=== PATIENT | male | born 1930 | race Caucasian/White ===

== ENCOUNTER 2019-02-02 17:42 | Inpatient (IN) ==
[2019-02-02] MEDS ORDERED: 0.9 % Sodium Chloride 1,000 ML IVC ONE ×2 (17:51→19:19)
[2019-02-02 18:42] LABS: Basophils % 0.2 %; Hematocrit 34.7 % (37.5-50.1); Hemoglobin 10.8 g/dL (12.9-16.9); Immature Granulocytes % 0.4 % (0-4); Lymphocytes # 0.4 K/mcL (0.6-4.6); Mean Corpuscular HGB Conc 31.1 g/dL (31.6-35.5); Mean Corpuscular Hemoglobin 25.3 pg (28.0-33.3); Mean Corpuscular Volume 81.3 fL (83.0-100.0); Mean Platelet Volume 9.6 fL (9.4-12.4); Monocytes # 0.8 K/mcL (0.0-1.3); Monocytes % 8.2 %; Neutrophils # 8.8 K/mcL (1.6-8.9); Platelet Count 379 K/mcL (140-400); Red Blood Count 4.27 M/mcL (4.19-5.50); Segmented Neutrophils % 87.2 %; White Blood Count 10.1 K/mcL (4.3-11.1)
[2019-02-02 18:49] LABS: INR 1.4; Prothrombin Time 15.4 Seconds (9.4-12.1)
[2019-02-02 19:06] LABS: Alanine Aminotransferase 7 Units/L (7-52); Albumin 2.5 g/dL (3.5-5.7); Albumin/Globulin Ratio 0.6 (1.1-2.2); Alkaline Phosphatase 124 Units/L (34-104); Aspartate Amino Transferase 22 Units/L (13-39); BUN/Creatinine Ratio 14 (6-26); Bilirubin,Total 0.9 mg/dL (0.3-1.0); Blood Urea Nitrogen 12 mg/dL (8-23); Calcium 8.5 mg/dL (8.6-10.3); Carbon Dioxide 26 mEq/L (23-29); Chloride 96 mEq/L (98-107); Globulin 4.5 g/dL (2.4-3.5); Glucose 186 mg/dL (70-105); Osmolality,Calculated 289 (280-300); Potassium 3.4 mEq/L (3.5-5.1); Sodium 137 mEq/L (136-145); Troponin I 0.03 ng/mL (< 0.04); eGFR For African Americans > 60 (> 60); eGFR For Non-African Americans > 60 (> 60)
[2019-02-02] MEDS ORDERED: Ondansetron 4 MG/2 ML VIAL IVP ONE (19:18)
--- NOTE | 2019-02-02 19:19 | Emergency Department Note ---
Disposition Clinical Impression: Elevated lactic acid level Rhabdomyolysis Qualifiers: Rhabdomyolysis type: non-traumatic Qualified Code(s): M62.82 - Rhabdomyolysis Ascites Qualifiers: Ascites type: other type Qualified Code(s): R18.8 - Other ascites Disposition: Still a Patient Condition: Undetermined [facility]Primary Care Provider[facility] - Forms: ED Satisfaction Letter Time of Disposition: 19:49 General Adult HPI - General Chief complaint: ED Fall Stated complaint: Weakness Time Seen by Provider: 02/02/19 17:54 Source: family (Son), EMS Mode of arrival: EMS Limitations: altered mental status Nursing Notes Reviewed: Yes Vital Signs Reviewed: Yes - History of Present Illness HPI Narrative: 88-year-old male presents emergency department via EMS after being found down on the ground by son. History is limited due to the patient's current mental status. The son states arriving at the patient's house finding him on the bathroom floor unable to get up. States the patient reports being on the ground all day. The sun last saw the patient yesterday. Reportedly at this time the patient cannot provide any additional history. He is is not recall what happened. He denies any pain at this time. The son does not know what medications or medical illnesses he has in the patient does not as well. On physical evaluation it does appear that he has ascites as he has a distended abdomen when he denies history of liver cirrhosis. The son reports she is typically confused at baseline but this is more so than usual. He believes he is in [place] but thinks the years 1985. He knows his name. Pain Scale: 0 - Related Data Home Medications Medication Instructions Recorded Confirmed Atorvastatin Calcium 80 mg PO HS 04/17/17 10/09/18 Insulin Glargine [Lantus] 50 unit SQ DAILY 04/17/17 10/09/18 Losartan [Cozaar] 12.5 mg PO DAILY 04/17/17 10/09/18 Omeprazole [PriLOSEC] 20 mg PO DAILY 03/11/18 10/09/18 Previous Rx's Medication Instructions Recorded Ferrous Sulfate 325 mg PO BID 30 Days #60 tablet. 10/09/18 Allergies Allergy/AdvReac Type Severity Reaction Status Date / Time metformin AdvReac Unknown Abdominal Verified 10/09/18 09:24 Pain tamsulosin AdvReac Unknown unknown Verified 10/09/18 09:24 Limitations: ROS unobtainable due to patients medical condition Past Medical History - Past Medical History Source: unable to obtain, old records reviewed Medical history: Reports: cancer, CVA, diabetes, hyperlipidemia, hypertension Surgical history: Reports: non-contributory Psychiatric history: Reports: no psych history - Social History Smoking Status: Former smoker Smokeless Tobacco Status: No Alcohol use: Reports: none Drug use: Reports: none Physical Exam - General Limitations: altered mental status General appearance: other - Head Head exam: atraumatic, normocephalic, normal inspection - Eye Eye exam: Present: normal appearance, EOMI. Absent: scleral icterus, nystagmus - ENT ENT exam: normal exam, normal oropharynx, mucous membranes moist - Neck Neck exam: Present: normal inspection, full ROM, trachea midline. Absent: tenderness - Chest Chest inspection: Present: normal inspection, symmetric chest wall rise. Absent: tenderness - Respiratory Respiratory exam: Present: normal lung sounds bilaterally - Cardiovascular Cardiovascular exam: Present: regular rate, normal rhythm, normal heart sounds - Abdominal Exam Abdominal exam: Present: soft, distention, ascites. Absent: tenderness, guarding, rebound, rigidity - Extremities Exam Extremities exam: Present: normal inspection, full ROM - Expanded Upper Extremity Exam Shoulder exam: Present: normal inspection, full ROM Arm exam: Present: normal inspection, full ROM Elbow exam: Present: normal inspection, full ROM, abrasion Forearm/Wrist exam: Present: normal inspection, full ROM Hand exam: Present: normal inspection, full ROM Vascular exam: Normal: capillary refill, radial pulse - Expanded Lower Extremity Exam Hip/Pelvis exam: Present: normal inspection, full ROM Upper leg exam: Present: normal inspection, full ROM Knee exam: Present: normal inspection, full ROM Lower leg exam: Present: normal inspection, full ROM Ankle exam: Present: normal inspection, full ROM Foot/toe exam: Present: normal inspection, full ROM Neurovascular/Tendon exam: Absent: motor deficit, sensory deficit, tendon deficit - Back Exam Back exam: Present: normal inspection, full ROM, other (Slight area of erythema on the sacrum). Absent: tenderness - Neurological Exam Neurological exam: Present: alert - Expanded Neurological Exam Patient oriented to: Present: person. Absent: place, time Cranial nerves: EOM function (II, III, IV, ): Normal, facial sensation (V): Normal, facial palsy (VII): Normal, tongue deviation (XII): Normal Motor strength - LUE: 5/5 Motor strength - RUE: 5/5 Motor strength - LLE: 5/5 Motor strength - RLE: 5/5 Upper motor neuron exam: tony neglect: Absent bilaterally, pronator drift: Absent bilaterally Sensory exam upper extremity: light touch: Normal Sensory exam lower extremity: light touch: Normal - Psychiatric Psychiatric exam: Present: normal affect, normal mood - Skin Skin exam: Present: warm, dry, intact, normal color, other (He has multiple areas of ecchymosis due to likely prior injuries) - Expanded Skin Exam Type of lesion: Present: abrasion (Bilateral elbow) Course Course Narrative: Patient comes reportedly found down. No additional history provided. At this time will evaluate for possible rhabdomyolysis with CK basic labs. EKG and imaging will be ordered including CT of the head and cervical spine. Patient will likely require admission pending his evaluation. If he does have intracranial etiology or hemorrhage he will likely require transfer. - Reevaluation(s) Reevaluation #1: Review of his labs has multiple abnormalities. He has elevated BNP and abnormal troponin 0.03. His lactate is critically high at 4.2. His CK is also elevated without evidence of acute kidney injury. There is concerned that he is developing rhabdomyolysis and will continue aggressive fluid hydration. Will closely monitor his urine output by placing a Miner catheter. His blood pressure otherwise remains quite stable. He is developing some nausea and it will be addressed with Zofran. CT scan images are still pending at this time. We will a transfer his care to nighttime physician Dr. Araujo pending and imaging and final disposition. Vital Signs Temperature 98.8 F 02/02/19 17:44 Pulse Rate 116 02/02/19 17:44 Respiratory Rate 17 02/02/19 17:44 Blood Pressure 141/78 02/02/19 17:44 O2 Sat by Pulse Oximetry 94 02/02/19 17:44 Temperature 98.8 F 02/02/19 17:44 Pulse Rate 118 02/02/19 19:13 Respiratory Rate 22 02/02/19 19:13 Blood Pressure 147/88 02/02/19 19:13 O2 Sat by Pulse Oximetry 93 02/02/19 19:13 Oxygen Delivery Oxygen Delivery Room Air Medical Decision Making - MDM Narrative Medical decision making narrative: Patient was discussed with my attending physician who agrees with ED management and final disposition. They independently evaluated the patient. Please refer to their attestation to this encounter for additional information. This note was generated by [employer] voice recognition software and as a result grammatical or spelling errors may occur using this program. - Medical Records Medical records reviewed: Yes I reviewed the patient's medical records. - Lab Data Lab results reviewed: Yes I reviewed the patient's lab results. Result diagrams: 02/02/19 18:31 02/02/19 18:31 Lab Results 02/02/19 02/02/19 02/02/19 Range/Units 18:31 18:31 18:31 WBC 10.1 (4.3-11.1) K/mcL RBC 4.27 (4.19-5.50) M/mcL Hgb 10.8 L (12.9-16.9) g/dL Hct 34.7 L (37.5-50.1) % MCV 81.3 L (83.0-100.0) fL MCH 25.3 L (28.0-33.3) pg MCHC 31.1 L (31.6-35.5) g/dL RDW 19.0 H (11.5-14.5) % Plt Count 379 (140-400) K/mcL MPV 9.6 (9.4-12.4) fL Immature Gran % 0.4 (0-4) % Seg Neutrophils % 87.2 % Lymphocytes % 4.0 % Monocytes % 8.2 % Eosinophils % 0.0 % Basophils % 0.2 % Neutrophils # 8.8 (1.6-8.9) K/mcL Lymphocytes # 0.4 L (0.6-4.6) K/mcL Monocytes # 0.8 (0.0-1.3) K/mcL Eosinophils # 0.0 (0.0-0.6) K/mcL Basophils # 0.0 (0.0-0.2) K/mcL PT 15.4 H (9.4-12.1) Seconds INR 1.4 Sodium 137 (136-145) mEq/L Potassium 3.4 L (3.5-5.1) mEq/L Chloride 96 L (98-107) mEq/L Carbon Dioxide 26 (23-29) mEq/L BUN 12 (8-23) mg/dL Creatinine 0.86 (0.70-1.30) mg/dL Est GFR ( Amer) > 60 (> 60) Est GFR (Non-Af Amer) > 60 (> 60) BUN/Creatinine Ratio 14 (6-26) Glucose 186 H (70-105) mg/dL Calculated Osmolality 289 (280-300) Lactic Acid (0.5-2.2) mmol/L Calcium 8.5 L (8.6-10.3) mg/dL Total Bilirubin 0.9 (0.3-1.0) mg/dL AST 22 (13-39) Units/L ALT 7 (7-52) Units/L Alkaline Phosphatase 124 H (34-104) Units/L Creatine Kinase (30-223) Units/L Troponin I 0.03 (< 0.04) ng/mL B-Natriuretic Peptide (Less than 100) pg/mL Serum Total Protein 7.0 (6.4-8.9) g/dL Albumin 2.5 L (3.5-5.7) g/dL Globulin 4.5 H (2.4-3.5) g/dL Albumin/Globulin Ratio 0.6 L (1.1-2.2) TSH 4.201 (0.340-5.600) mcIU/mL Urine Color (Yellow) Urine Clarity (Clear) Urine pH (5.0-8.0) pH Units Ur Specific [place] (1.010-1.025) Urine Protein (Neg-Trace) mg/dL Urine Glucose (UA) (Normal) mg/dL Urine Ketones (Negative) mg/dL Urine Blood (Negative) Urine Nitrite (Negative) Urine Bilirubin (Negative) Urine Urobilinogen (Normal) mg/dL Ur Leukocyte Esterase (Negative) 02/02/19 02/02/19 02/02/19 Range/Units 18:31 18:31 18:31 WBC (4.3-11.1) K/mcL RBC (4.19-5.50) M/mcL Hgb (12.9-16.9) g/dL Hct (37.5-50.1) % MCV (83.0-100.0) fL MCH (28.0-33.3) pg MCHC (31.6-35.5) g/dL RDW (11.5-14.5) % Plt Count (140-400) K/mcL MPV (9.4-12.4) fL Immature Gran % (0-4) % Seg Neutrophils % % Lymphocytes % % Monocytes % % Eosinophils % % Basophils % % Neutrophils # (1.6-8.9) K/mcL Lymphocytes # (0.6-4.6) K/mcL Monocytes # (0.0-1.3) K/mcL Eosinophils # (0.0-0.6) K/mcL Basophils # (0.0-0.2) K/mcL PT (9.4-12.1) Seconds INR Sodium (136-145) mEq/L Potassium (3.5-5.1) mEq/L Chloride (98-107) mEq/L Carbon Dioxide (23-29) mEq/L BUN (8-23) mg/dL Creatinine (0.70-1.30) mg/dL Est GFR ( Amer) (> 60) Est GFR (Non-Af Amer) (> 60) BUN/Creatinine Ratio (6-26) Glucose (70-105) mg/dL Calculated Osmolality (280-300) Lactic Acid 4.7 H* (0.5-2.2) mmol/L Calcium (8.6-10.3) mg/dL Total Bilirubin (0.3-1.0) mg/dL AST (13-39) Units/L ALT (7-52) Units/L Alkaline Phosphatase (34-104) Units/L Creatine Kinase 475 H (30-223) Units/L Troponin I (< 0.04) ng/mL B-Natriuretic Peptide 200 H (Less than 100) pg/mL Serum Total Protein (6.4-8.9) g/dL Albumin (3.5-5.7) g/dL Globulin (2.4-3.5) g/dL Albumin/Globulin Ratio (1.1-2.2) TSH (0.340-5.600) mcIU/mL Urine Color (Yellow) Urine Clarity (Clear) Urine pH (5.0-8.0) pH Units Ur Specific [place] (1.010-1.025) Urine Protein (Neg-Trace) mg/dL Urine Glucose (UA) (Normal) mg/dL Urine Ketones (Negative) mg/dL Urine Blood (Negative) Urine Nitrite (Negative) Urine Bilirubin (Negative) Urine Urobilinogen (Normal) mg/dL Ur Leukocyte Esterase (Negative) 02/02/19 Range/Units 19:17 WBC (4.3-11.1) K/mcL RBC (4.19-5.50) M/mcL Hgb (12.9-16.9) g/dL Hct (37.5-50.1) % MCV (83.0-100.0) fL MCH (28.0-33.3) pg MCHC (31.6-35.5) g/dL RDW (11.5-14.5) % Plt Count (140-400) K/mcL MPV (9.4-12.4) fL Immature Gran % (0-4) % Seg Neutrophils % % Lymphocytes % % Monocytes % % Eosinophils % % Basophils % % Neutrophils # (1.6-8.9) K/mcL Lymphocytes # (0.6-4.6) K/mcL Monocytes # (0.0-1.3) K/mcL Eosinophils # (0.0-0.6) K/mcL Basophils # (0.0-0.2) K/mcL PT (9.4-12.1) Seconds INR Sodium (136-145) mEq/L Potassium (3.5-5.1) mEq/L Chloride (98-107) mEq/L Carbon Dioxide (23-29) mEq/L BUN (8-23) mg/dL Creatinine (0.70-1.30) mg/dL Est GFR ( Amer) (> 60) Est GFR (Non-Af Amer) (> 60) BUN/Creatinine Ratio (6-26) Glucose (70-105) mg/dL Calculated Osmolality (280-300) Lactic Acid (0.5-2.2) mmol/L Calcium (8.6-10.3) mg/dL Total Bilirubin (0.3-1.0) mg/dL AST (13-39) Units/L ALT (7-52) Units/L Alkaline Phosphatase (34-104) Units/L Creatine Kinase (30-223) Units/L Troponin I (< 0.04) ng/mL B-Natriuretic Peptide (Less than 100) pg/mL Serum Total Protein (6.4-8.9) g/dL Albumin (3.5-5.7) g/dL Globulin (2.4-3.5) g/dL Albumin/Globulin Ratio (1.1-2.2) TSH (0.340-5.600) mcIU/mL Urine Color Dark Yellow (Yellow) Urine Clarity Clear (Clear) Urine pH 6.0 (5.0-8.0) pH Units Ur Specific [place] 1.021 (1.010-1.025) Urine Protein 30 H (Neg-Trace) mg/dL Urine Glucose (UA) Normal (Normal) mg/dL Urine Ketones Trace H (Negative) mg/dL Urine Blood Negative (Negative) Urine Nitrite Negative (Negative) Urine Bilirubin Small H (Negative) Urine Urobilinogen Normal (Normal) mg/dL Ur Leukocyte Esterase Negative (Negative) - Radiology Data Radiology results reviewed: Yes I reviewed the patient's radiology results. Chest X-Ray 02/02/19 17:51 IMPRESSION: Moderate right pleural effusion. D/ / Iron Coreas MD / Iron Coreas MD Interpreting Provider: Iron Coreas MD Pelvis X-Ray 02/02/19 18:25 IMPRESSION: No acute fracture. D/ / Iron Coreas MD / Iron Coreas MD Interpreting Provider: Iron Coreas MD - EKG Data EKG #1 EKG attestation: Yes I reviewed and interpreted this EKG. EKG results narrative: EKG performed at 1751 sinus tachycardia 113 beats per minute, normal axis, good R wave progression, no ST elevation or depression. There is no old EKG available for comparison at this time. No acute ischemic changes. Critical Care Time Critical Care Time: Yes Total Critical Care Time: 35 Attestation: Ankle care time 35 minutes managing patient's multiple issues. Attestation Statement - Attestation Attestation: Patient was seen with resident physician. I reviewed the history, physical, assessment and plan, and agree with the findings. I also personally evaluated this patient and had [id number] time with this patient. 88-year-old male presents emergency Department chief complaint of fall. Patient is a very poor historian and was unable to provide significant history other than sometime yesterday he fell he does not remember exactly what happened and he was found today approximately a day later. He says he feels generally weak but denies other specific complaints he has had a little bit of nausea as well as some shortness of breath no chest pain. Review of systems as above remainder reviewed and negative to the best of our ability but the patient's a poor story. Physical exam vital signs demonstrate tachycardia with a stable blood pressure. ENT shows an abrasion to the top of his head. Neck and back are nontender. Heart regular rhythm and rate. Lungs some crackles in the bases. Abdomen is soft and nontender. Extremities no signs of trauma. Pelvis is stable. Neurologically patient is somewhat confused does follow commands no focal deficits. Skin abrasion as noted. Psych unable to evaluate. ED course. A thorough workup was done. Patient was found to have several metabolic derangements including rhabdo with elevated CK and a markedly elevated lactate level. He was hydrated. X-ray revealed pleural effusion. Workup was incomplete at the time of shift change. Patient was signed out to Dr. Araujo for final disposition with the plan to admit or transfer the patient once the remainder the information his back. Hemodynamically he remained stable while in the emergency department. I agree with the resident physician assessment and plan.
[2019-02-02 19:20] LABS: Thyroid Stimulating Hormone 4.201 mcIU/mL (0.340-5.600)
[2019-02-02 19:38] LABS: Bilirubin,Urine Small (Negative); Blood,Urine Negative (Negative); Clarity,Urine Clear (Clear); Color,Urine Dark Yellow (Yellow); Glucose,Urine (UA) Normal (Normal); Ketones,Urine Trace mg/dL (Negative); Leukocyte Esterase,Urine Negative (Negative); Nitrite,Urine Negative (Negative); Protein,Urine 30 mg/dL (Neg-Trace); Specific Gravity,Urine 1.021 (1.010-1.025); Urobilinogen,Urine Normal (Normal)
--- NOTE | 2019-02-02 19:38 | Emergency Department Note ---
Disposition Clinical Impression: Elevated lactic acid level Rhabdomyolysis Qualifiers: Rhabdomyolysis type: non-traumatic Qualified Code(s): M62.82 - Rhabdomyolysis Ascites Qualifiers: Ascites type: other type Qualified Code(s): R18.8 - Other ascites Disposition: Admitted As Inpatient Condition: Good [facility]errals: [facility] [Primary Care Provider] - Forms: ED Satisfaction Letter Time of Disposition: 20:25 General Adult HPI - General Chief complaint: ED Fall Stated complaint: Weakness Time Seen by Provider: 02/02/19 17:54 Source: EMS Limitations: altered mental status - History of Present Illness Pain Scale: 0 - Related Data Home Medications Medication Instructions Recorded Confirmed Atorvastatin Calcium 80 mg PO HS 04/17/17 10/09/18 Insulin Glargine [Lantus] 50 unit SQ DAILY 04/17/17 10/09/18 Losartan [Cozaar] 12.5 mg PO DAILY 04/17/17 10/09/18 Omeprazole [PriLOSEC] 20 mg PO DAILY 03/11/18 10/09/18 Previous Rx's Medication Instructions Recorded Ferrous Sulfate 325 mg PO BID 30 Days #60 tablet. 10/09/18 Allergies Allergy/AdvReac Type Severity Reaction Status Date / Time metformin AdvReac Unknown Abdominal Verified 10/09/18 09:24 Pain tamsulosin AdvReac Unknown unknown Verified 10/09/18 09:24 Past Medical History - Past Medical History Medical history: Reports: cancer, CVA, diabetes, hyperlipidemia, hypertension Surgical history: Reports: non-contributory Psychiatric history: Reports: no psych history - Social History Smoking Status: Former smoker Smokeless Tobacco Status: No Alcohol use: Reports: none Drug use: Reports: none Physical Exam - General Limitations: altered mental status General appearance: other Course Course Narrative: accepted sign out from Dr. Walker and Dr. Resident [place]. Plan is to followup on CT scans and admit to medicine for rhabdo and elevated lactic acid - Reevaluation(s) Reevaluation #1: updated patinet and family on results and they are agreeable to admission to the hospital today. Time: 20:25 - Consultations Consultation #1: dscussed case with Dr. pollock and he accepts patient to his service. Time: 20:25 Vital Signs Temperature 98.8 F 02/02/19 17:44 Pulse Rate 116 02/02/19 17:44 Respiratory Rate 17 02/02/19 17:44 Blood Pressure 141/78 02/02/19 17:44 O2 Sat by Pulse Oximetry 94 02/02/19 17:44 Temperature 98.8 F 02/02/19 17:44 Pulse Rate 118 02/02/19 19:13 Respiratory Rate 22 02/02/19 19:13 Blood Pressure 147/88 02/02/19 19:13 O2 Sat by Pulse Oximetry 93 02/02/19 19:13 Oxygen Delivery Oxygen Delivery Room Air Medical Decision Making - Lab Data Result diagrams: 02/02/19 18:31 02/02/19 18:31 Lab Results 02/02/19 02/02/19 02/02/19 Range/Units 18:31 18:31 18:31 WBC 10.1 (4.3-11.1) K/mcL RBC 4.27 (4.19-5.50) M/mcL Hgb 10.8 L (12.9-16.9) g/dL Hct 34.7 L (37.5-50.1) % MCV 81.3 L (83.0-100.0) fL MCH 25.3 L (28.0-33.3) pg MCHC 31.1 L (31.6-35.5) g/dL RDW 19.0 H (11.5-14.5) % Plt Count 379 (140-400) K/mcL MPV 9.6 (9.4-12.4) fL Immature Gran % 0.4 (0-4) % Seg Neutrophils % 87.2 % Lymphocytes % 4.0 % Monocytes % 8.2 % Eosinophils % 0.0 % Basophils % 0.2 % Neutrophils # 8.8 (1.6-8.9) K/mcL Lymphocytes # 0.4 L (0.6-4.6) K/mcL Monocytes # 0.8 (0.0-1.3) K/mcL Eosinophils # 0.0 (0.0-0.6) K/mcL Basophils # 0.0 (0.0-0.2) K/mcL PT 15.4 H (9.4-12.1) Seconds INR 1.4 Sodium 137 (136-145) mEq/L Potassium 3.4 L (3.5-5.1) mEq/L Chloride 96 L (98-107) mEq/L Carbon Dioxide 26 (23-29) mEq/L BUN 12 (8-23) mg/dL Creatinine 0.86 (0.70-1.30) mg/dL Est GFR ( Amer) > 60 (> 60) Est GFR (Non-Af Amer) > 60 (> 60) BUN/Creatinine Ratio 14 (6-26) Glucose 186 H (70-105) mg/dL Calculated Osmolality 289 (280-300) Lactic Acid (0.5-2.2) mmol/L Calcium 8.5 L (8.6-10.3) mg/dL Total Bilirubin 0.9 (0.3-1.0) mg/dL AST 22 (13-39) Units/L ALT 7 (7-52) Units/L Alkaline Phosphatase 124 H (34-104) Units/L Creatine Kinase (30-223) Units/L Troponin I 0.03 (< 0.04) ng/mL B-Natriuretic Peptide (Less than 100) pg/mL Serum Total Protein 7.0 (6.4-8.9) g/dL Albumin 2.5 L (3.5-5.7) g/dL Globulin 4.5 H (2.4-3.5) g/dL Albumin/Globulin Ratio 0.6 L (1.1-2.2) TSH 4.201 (0.340-5.600) mcIU/mL Urine Color (Yellow) Urine Clarity (Clear) Urine pH (5.0-8.0) pH Units Ur Specific [place] (1.010-1.025) Urine Protein (Neg-Trace) mg/dL Urine Glucose (UA) (Normal) mg/dL Urine Ketones (Negative) mg/dL Urine Blood (Negative) Urine Nitrite (Negative) Urine Bilirubin (Negative) Urine Urobilinogen (Normal) mg/dL Ur Leukocyte Esterase (Negative) Urine Microscopic RBC (0-3) per hpf Urine Microscopic WBC (0-3) per hpf Ur Squamous Epith Cells (None-Few) per lpf Urine Bacteria (None-Few) per hpf Hyaline Casts (None-Few) per lpf Ur Culture Indicated? (NO) 02/02/19 02/02/19 02/02/19 Range/Units 18:31 18:31 18:31 WBC (4.3-11.1) K/mcL RBC (4.19-5.50) M/mcL Hgb (12.9-16.9) g/dL Hct (37.5-50.1) % MCV (83.0-100.0) fL MCH (28.0-33.3) pg MCHC (31.6-35.5) g/dL RDW (11.5-14.5) % Plt Count (140-400) K/mcL MPV (9.4-12.4) fL Immature Gran % (0-4) % Seg Neutrophils % % Lymphocytes % % Monocytes % % Eosinophils % % Basophils % % Neutrophils # (1.6-8.9) K/mcL Lymphocytes # (0.6-4.6) K/mcL Monocytes # (0.0-1.3) K/mcL Eosinophils # (0.0-0.6) K/mcL Basophils # (0.0-0.2) K/mcL PT (9.4-12.1) Seconds INR Sodium (136-145) mEq/L Potassium (3.5-5.1) mEq/L Chloride (98-107) mEq/L Carbon Dioxide (23-29) mEq/L BUN (8-23) mg/dL Creatinine (0.70-1.30) mg/dL Est GFR ( Amer) (> 60) Est GFR (Non-Af Amer) (> 60) BUN/Creatinine Ratio (6-26) Glucose (70-105) mg/dL Calculated Osmolality (280-300) Lactic Acid 4.7 H* (0.5-2.2) mmol/L Calcium (8.6-10.3) mg/dL Total Bilirubin (0.3-1.0) mg/dL AST (13-39) Units/L ALT (7-52) Units/L Alkaline Phosphatase (34-104) Units/L Creatine Kinase 475 H (30-223) Units/L Troponin I (< 0.04) ng/mL B-Natriuretic Peptide 200 H (Less than 100) pg/mL Serum Total Protein (6.4-8.9) g/dL Albumin (3.5-5.7) g/dL Globulin (2.4-3.5) g/dL Albumin/Globulin Ratio (1.1-2.2) TSH (0.340-5.600) mcIU/mL Urine Color (Yellow) Urine Clarity (Clear) Urine pH (5.0-8.0) pH Units Ur Specific [place] (1.010-1.025) Urine Protein (Neg-Trace) mg/dL Urine Glucose (UA) (Normal) mg/dL Urine Ketones (Negative) mg/dL Urine Blood (Negative) Urine Nitrite (Negative) Urine Bilirubin (Negative) Urine Urobilinogen (Normal) mg/dL Ur Leukocyte Esterase (Negative) Urine Microscopic RBC (0-3) per hpf Urine Microscopic WBC (0-3) per hpf Ur Squamous Epith Cells (None-Few) per lpf Urine Bacteria (None-Few) per hpf Hyaline Casts (None-Few) per lpf Ur Culture Indicated? (NO) 02/02/19 Range/Units 19:17 WBC (4.3-11.1) K/mcL RBC (4.19-5.50) M/mcL Hgb (12.9-16.9) g/dL Hct (37.5-50.1) % MCV (83.0-100.0) fL MCH (28.0-33.3) pg MCHC (31.6-35.5) g/dL RDW (11.5-14.5) % Plt Count (140-400) K/mcL MPV (9.4-12.4) fL Immature Gran % (0-4) % Seg Neutrophils % % Lymphocytes % % Monocytes % % Eosinophils % % Basophils % % Neutrophils # (1.6-8.9) K/mcL Lymphocytes # (0.6-4.6) K/mcL Monocytes # (0.0-1.3) K/mcL Eosinophils # (0.0-0.6) K/mcL Basophils # (0.0-0.2) K/mcL PT (9.4-12.1) Seconds INR Sodium (136-145) mEq/L Potassium (3.5-5.1) mEq/L Chloride (98-107) mEq/L Carbon Dioxide (23-29) mEq/L BUN (8-23) mg/dL Creatinine (0.70-1.30) mg/dL Est GFR ( Amer) (> 60) Est GFR (Non-Af Amer) (> 60) BUN/Creatinine Ratio (6-26) Glucose (70-105) mg/dL Calculated Osmolality (280-300) Lactic Acid (0.5-2.2) mmol/L Calcium (8.6-10.3) mg/dL Total Bilirubin (0.3-1.0) mg/dL AST (13-39) Units/L ALT (7-52) Units/L Alkaline Phosphatase (34-104) Units/L Creatine Kinase (30-223) Units/L Troponin I (< 0.04) ng/mL B-Natriuretic Peptide (Less than 100) pg/mL Serum Total Protein (6.4-8.9) g/dL Albumin (3.5-5.7) g/dL Globulin (2.4-3.5) g/dL Albumin/Globulin Ratio (1.1-2.2) TSH (0.340-5.600) mcIU/mL Urine Color Dark Yellow (Yellow) Urine Clarity Clear (Clear) Urine pH 6.0 (5.0-8.0) pH Units Ur Specific [place] 1.021 (1.010-1.025) Urine Protein 30 H (Neg-Trace) mg/dL Urine Glucose (UA) Normal (Normal) mg/dL Urine Ketones Trace H (Negative) mg/dL Urine Blood Negative (Negative) Urine Nitrite Negative (Negative) Urine Bilirubin Small H (Negative) Urine Urobilinogen Normal (Normal) mg/dL Ur Leukocyte Esterase Negative (Negative) Urine Microscopic RBC 0-3 (0-3) per hpf Urine Microscopic WBC 5-15 H (0-3) per hpf Ur Squamous Epith Cells Many H (None-Few) per lpf Urine Bacteria None Seen (None-Few) per hpf Hyaline Casts Moderate H (None-Few) per lpf Ur Culture Indicated? YES A (NO)
[2019-02-02 19:40] LABS: Bacteria,Urine None Seen per hpf (None-Few); Hyaline Casts,Urine Moderate per lpf (None-Few); Squamous Epithelial Cell,Urine Many per lpf (None-Few)
[2019-02-02 19:53] LABS: RBC,Urine 0-3 per hpf (0-3)
[2019-02-02] MEDS ORDERED: Piperacillin/Tazobactam 3.375 GM in 0.9 % Sodium Chloride Mini Bag 100 ML IVPB ONE (20:11)
[2019-02-02] MEDS: 0.9 % Sodium Chloride 1,000 ML IVC SCH (20:50)
[2019-02-02] MEDS ORDERED: Ondansetron 4 MG/2 ML VIAL IVP PRN (21:53)
[2019-02-02] MEDS ORDERED: Naloxone 0.4 MG/ML INJ IVP PRN (21:53)
--- NOTE | 2019-02-02 22:03 | Internal Med History&Physical ---
Date of Encounter: 02/02/19 Time of Encounter: 21:00 Internal Medicine - H&P: HPI Chief complaint: Weakness, rhabdomyolysis Admitted From: Emergency Dept History of present illness: Mr. Page is a 88 year old male Patient presented to the emergency room after being found on the floor of his bathroom by his son. Patient does not remember the episode, and the son did not find the patient until later. All the patient remembers is that he woke up in the morning and went to the bathroom and he must of blacked out. He has had falls at home before, but he has never lost consciousness. His son went to see him in the afternoon found him on the floor in a pool of blood from a wound sustained during the fall. He called ambulance to take him to the emergency room. Patient usually lives alone, but his family lives in the house next door. Patient was confused when he was found. In the emergency room patient's initial vital signs were within normal limits aside from elevated heart rate of 116. CBC: Notable for white count of 10.1 and a hemoglobin of 10.8 and platelets 379 BMP: Notable for potassium of 3.4 and a glucose of 186. Lactic acid 4.7 INR 1.4 Alkaline phosphatase mildly elevated at 124 Calcium 8.2 Creatinine kinase 475 BNP 200 Albumin 2.5. Urinalysis not indicative of infection Head CT no acute intracranial abnormality Pelvis x-ray negative for fracture Cervical spine CT no acute abnormality Chest x-ray moderate right pleural effusion Chest, Abdomen and pelvis CT: Large right and [id number] left pleural eff usion, large ascites, cirrhosis EKG: Sinus tach, rate 113 no acute ischemic changes Emergency room patient received a total of 2 L of IV fluids, and was started on 150cc maintenance fluids.he was given a milligram Zofran and a dose of Zosyn. He was admitted to the hospital for further management. Upon my evaluation, patient is resting comfortably in the hospital bed in no acute distress. He denies chest pain, abdominal pain, nausea, vomiting, diarrhea and constipation. He has no shortness of breath. He is oriented to self, place, his birthday and the year. He does not remember falling. His son is at bedside, and does not know much of the patient's medical history. The patient also does not know very much of his medical history. During my examination, patient mentioned that he has a diagnosis of tuberculosis. [facility] contacted the [facility], and they confirmed that the patient does not have tuberculosis. They agreed to fax over some of patient's medical record as our records are incomplete. Patient has never been admitted to this hospital before. I discussed with the patient his CODE STATUS, and he wishes to be DNR/DNI. According to documentation obtained from the [facility], patient has a history of esophageal varices with GI bleed, anemia, diabetes, hypertension and cirrhosis. Past Med Surg Social Fam HX - Past Medical History Medical history: cancer, CVA, diabetes, hyperlipidemia, hypertension Additional medical history: colon CA Psychiatric history: no psych history - Past Surgical History Surgical History: non-contributory - Social History Smoking Status: Former smoker Smokeless Tobacco Status: No Alcohol use: none Drug use: none - Family History Mother History Unknown: Yes Father History Unknown: Yes Internal Medicine - H&P: Meds Atorvastatin Calcium 80 mg PO HS 04/17/17 [History] Insulin Glargine [Lantus] 50 unit SQ DAILY 04/17/17 [History] Losartan [Cozaar] 12.5 mg PO DAILY 04/17/17 [History] Omeprazole [PriLOSEC] 20 mg PO DAILY 03/11/18 [History] Ferrous Sulfate 325 mg PO BID 30 Days #60 tablet. 10/09/18 [Rx] Allergy/AdvReac Type Severity Reaction Status Date / Time metformin AdvReac Unknown Abdominal Verified 10/09/18 09:24 Pain tamsulosin AdvReac Unknown unknown Verified 10/09/18 09:24 All Systems PM: A 10-system review of systems was performed and is negative for pertinent findings except as documented above in the HPI. - Constitutional Vitals: Temp Pulse Resp BP Pulse Ox 98.2 F 109 14 136/74 95 02/02/19 21:36 02/02/19 21:36 02/02/19 21:36 02/02/19 21:36 02/02/19 21:58 General appearance: Present: cooperative, A&O X 2, pleasant, no acute distress Exam: Oriented to name, place, date of , and knew the year. Did not remember the episode that brought him here - Head Head exam: Present: normal inspection - Eye Eye exam: Present: EOMI, normal appearance - Neck Neck exam general surgery: Present: full ROM - Respiratory Respiratory exam: Present: rales. Absent: decreased breath sounds, CTAB, respiratory distress, wheezes - Cardiovascular Cardiovascular exam: Present: RRR. Absent: diastolic murmur, systolic murmur - GI/Abdominal GI/Abdominal exam: Present: distended, normal bowel sounds, soft. Absent: tenderness - Extremities Exam Extremities exam: Present: warm, radial pulses palpable and symmetrical. Absent: calf tenderness, pedal edema, tenderness - Neurological Exam Neurological exam: Present: no focal deficits, strengths equal and symetr throughout. Absent: motor sensory deficit, facial droop, speech deficit - Skin Skin exam: Present: normal color. Absent: dry, warm Internal Med - H&P Results - Labs CBC & Chem 7: 02/02/19 18:31 02/02/19 18:31 Labs: Short CBC 02/02/19 Range/Units 18:31 WBC 10.1 (4.3-11.1) K/mcL Hgb 10.8 L (12.9-16.9) g/dL Hct 34.7 L (37.5-50.1) % Plt Count 379 (140-400) K/mcL Neutrophils # 8.8 (1.6-8.9) K/mcL BMP 02/02/19 18:31 Sodium 137 Potassium 3.4 L Chloride 96 L Carbon Dioxide 26 BUN 12 Creatinine 0.86 Glucose 186 H Calcium 8.5 L Cardiac Enzymes 02/02/19 Range/Units 18:31 Troponin I 0.03 (< 0.04) ng/mL Liver Function 02/02/19 Range/Units 18:31 Total Bilirubin 0.9 (0.3-1.0) mg/dL AST 22 (13-39) Units/L ALT 7 (7-52) Units/L Alkaline Phosphatase 124 H (34-104) Units/L Albumin 2.5 L (3.5-5.7) g/dL Urine 02/02/19 Range/Units 19:17 Urine Color Dark Yellow (Yellow) Urine Clarity Clear (Clear) Urine pH 6.0 (5.0-8.0) pH Units Ur Specific [place] 1.021 (1.010-1.025) Urine Protein 30 H (Neg-Trace) mg/dL Urine Glucose (UA) Normal (Normal) mg/dL - Impressions ITS Impressions Abdomen/Pelvis CT 02/02/19 00:00 IMPRESSION: 1. Large right and small to moderate left pleural effusions with associated atelectasis. 2. Large ascites. 3. Findings of cirrhosis. 4. Thickened ascending colon wall likely edema related to the cirrhosis and ascites. D/ / Iron Coreas MD / Iron Coreas MD Interpreting Provider: Iron Coreas MD Chest CT 02/02/19 00:00 IMPRESSION: 1. Large right and small to moderate left pleural effusions with associated atelectasis. 2. Large ascites. 3. Findings of cirrhosis. 4. Thickened ascending colon wall likely edema related to the cirrhosis and ascites. D/ / Iron Coreas MD / Iron Coreas MD Interpreting Provider: Iron Coreas MD Chest X-Ray 02/02/19 17:51 IMPRESSION: Moderate right pleural effusion. D/ / Iron Coreas MD / Iron Coreas MD Interpreting Provider: Iron Coreas MD Head CT 02/02/19 17:51 IMPRESSION: No acute intracranial abnormality. D/ / Fabricio Reinoso MD / Fabricio Reinoso MD Interpreting Provider: Fabricio Reinoso MD Cervical Spine CT 02/02/19 18:25 IMPRESSION: 1. No acute cervical spine abnormality 2. Bilateral pleural effusions right greater than left. D/ / Fabricio Reinoso MD / Farbicio Reinoso MD Interpreting Provider: Fabricio Reinoso MD Pelvis X-Ray 02/02/19 18:25 IMPRESSION: No acute fracture. D/ / Iron Coreas MD / Iron Coreas MD Interpreting Provider: Iron Coreas MD - Assessment and Plan (1) Rhabdomyolysis Current Visit: Yes Status: Acute Assessment and plan: Elevated CK level of 475. Patient received 2 L of IV fluids in the ER. Continue IV fluid hydration Repeat CK level in the morning Monitor renal function Qualifiers: Rhabdomyolysis type: non-traumatic Qualified Code(s): M62.82 - Rhabdomyolysis (2) Falls Current Visit: Yes Status: Acute Assessment and plan: Patient does not recall the episode that brought him to the emergency room. He is unsure how long he was on the ground. He has had multiple falls at home previously is never lost consciousness. Patient does not eat the food that he is given by his family. He states that he just has no appetite and does not want to eat. PT OT consult in the morning Fall precautions Nutrition consult Qualifiers: Encounter type: initial encounter Qualified Code(s): W19.XXXA - Unspecified fall, initial encounter (3) Elevated lactic acid level Current Visit: Yes Status: Acute Assessment and plan: Lactic acid level was 4.7 in the emergency room. Patient received 2 L of IV fluids. Repeat lactic acid pending. Likely secondary to rhabdomyolysis. No indication for antibiotics, no obvious infection. Continue IV fluid hydration Monitor respiratory function (4) Ascites Current Visit: Yes Status: Acute Assessment and plan: Patient's abdomen distended, imaging reveals ascites. He does have a history of cirrhosis. Unclear if patient has required paracentesis in the past. Continue to monitor Obtain medication list Consider arranging paracentesis Qualifiers: Ascites type: other type Qualified Code(s): R18.8 - Other ascites (5) Elevated troponin Current Visit: Yes Status: Acute Assessment and plan: 0.03 in the ER. No chest pain, EKG non-ischemic Cardiac monitoring Continue to trend troponin (6) Mesenteric mass Current Visit: No Status: Acute Assessment and plan: Last seen by [place] [facility] in September of this year. Management per oncology (7) DVT prophylaxis Current Visit: Yes Status: Acute Assessment and plan: SCDs secondary to history of GI bleed - Time Spent With Patient Total time spent is greater than 50% in coordination of care (as documented) at patient's floor/unit and/or counseling patient: Greater than 35 minutes
[2019-02-02] MEDS ORDERED: *HR* Dextrose 50 % in Water (Syg) 50 ML SYRINGE IVP PRN (22:32)
[2019-02-02] MEDS ORDERED: D5% in Water 1,000 ML IVC PRN (22:32)
[2019-02-02] MEDS ORDERED: Dextrose Gel 15 GM/37.5 ML TUBE PO PRN ×2 (22:32)
[2019-02-03 01:49] LABS: Hemoglobin 10.7 g/dL (12.9-16.9); Mean Corpuscular HGB Conc 30.6 g/dL (31.6-35.5); Mean Corpuscular Hemoglobin 25.6 pg (28.0-33.3); Mean Corpuscular Volume 83.7 fL (83.0-100.0); Mean Platelet Volume 9.7 fL (9.4-12.4); Platelet Count 337 K/mcL (140-400); Red Blood Count 4.18 M/mcL (4.19-5.50); Red Cell Distribution Width 18.8 % (11.5-14.5); White Blood Count 8.7 K/mcL (4.3-11.1)
[2019-02-03 02:02] LABS: BUN/Creatinine Ratio 15 (6-26); Blood Urea Nitrogen 12 mg/dL (8-23); Calcium 8.1 mg/dL (8.6-10.3); Carbon Dioxide 28 mEq/L (23-29); Chloride 100 mEq/L (98-107); Glucose 175 mg/dL (70-105); Osmolality,Calculated 290 (280-300); Potassium 3.4 mEq/L (3.5-5.1); Sodium 138 mEq/L (136-145); eGFR For African Americans > 60 (> 60); eGFR For Non-African Americans > 60 (> 60)
[2019-02-03] MEDS: 0.9 % Sodium Chloride 1,000 ML IVC SCH ×2 (02:51→10:41)
[2019-02-03] MEDS ORDERED: 0.9 % Sodium Chloride 1,000 ML IVC ONE (05:40)
[2019-02-03] MEDS: Insulin LISPRO 300 UNITS/3 ML VIAL SQ SCH ×4 (08:44→20:38)
--- NOTE | 2019-02-03 11:48 | IR Procedure Note ---
Date of procedure: 02/03/19 Consent Obtained: Written consent Timeout: Correct patient and procedure verified, Correct site verified, Time out performed, Skin prep completed Local anesthetic: Lidocaine 1% Was there an press assistant and feeder present: No Results/Findings: Ascites, draining Estimated blood loss (cc): 1 Complications: None; Tolerated procedure well Indications: Ascites Procedure Performed: Paracentesis Site/Technique: LLQ, accessed by Dr. Grayson. Results/Findings (any specimens removed): Draining well, straw colored ascites Post Procedure Treatment Plan: Monitoring in pts room Specimen: collected
--- NOTE | 2019-02-03 13:04 | Internal Med Progress Note ---
Hospitalist Progress Note - Encounter Date of Encounter: 02/03/19 Time of Encounter: 13:04 - Subjective Interval History: Patient is seen and examined at the bedside, son at the bedside. He is hard of hearing, slightly confused and a poor historian Son at the bedside reports patient lives alone but he lives next door. Patient has been having recurrent falls and was admitted for elevated CK and recurrent falls. Incidental finding of massive ascites now status post paracentesis with 7.28 L of straw-colored fluid removed. The patient does have a known history of cirrhosis. His son at the bedside also reports poor oral intake, generalized weakness. work force advisor/dietitian has seen in review. - Exam Vitals: Temp Pulse Resp BP Pulse Ox 97.4 F L 91 16 106/62 89 02/03/19 12:45 02/03/19 12:45 02/03/19 12:45 02/03/19 12:45 02/03/19 12:45 Exam: Gen: Laying flat in bed, hard of hearing but not in distress. HEENT: dry oral mucosa, anicteric Chest: CTAB, no added sounds Heart: S1, S2 only, no added sounds, systolic murmur Abdomen: Flat, clean wound dressing at para site, no palpably enlarged organs Extremities: Trace ankle edema bilaterally Neuro: Aleert, awake, oriented to place and person, moved all extremities equally. Psych: appropriate mood and affect - Assessment and Plan (1) Mesenteric mass Current Visit: Yes Status: Chronic Assessment and Plan: Biopsy proven low grade follicular lympoma Last seen by [facility] in September of this year. Management per oncology (2) Rhabdomyolysis Current Visit: Yes Status: Acute Assessment and Plan: See elevated CK Patient's renal function is WNL (3) Elevated lactic acid level Current Visit: Yes Status: Resolved Assessment and Plan: Lactic acid level was 4.7 in the emergency room. Patient received 2 L of IV fluids. Repeat lactic acid is 1.4, continue to monitor (4) Ascites Current Visit: Yes Status: Acute Assessment and Plan: Patient's abdomen distended, imaging reveals ascites. He does have a history of cirrhosis and follicular lymphoma s/p paracentensis by IR with removal of 7.2L of straw colored fluid-did not send for pathology Will give 25g of albumin for large volume paracentesis Continue to monitor Not on diuretics, consider starting diuretics after IVF hydration for elevated CK has been discontinued (5) DVT prophylaxis Current Visit: Yes Status: Acute Assessment and Plan: SCDs secondary to history of GI bleed (6) Falls Current Visit: Yes Status: Acute Assessment and Plan: Patient does not recall the episode that brought him to the emergency room. He is unsure how long he was on the ground. He has had multiple falls at home previously is never lost consciousness. Patient does not eat the food that he is given by his family. He states that he just has no appetite and does not want to eat. PT OT consult pending Fall precautions Nutrition consult noted-continue ensure (7) Elevated troponin Current Visit: Yes Status: Resolved Assessment and Plan: 0.03 in the ER. No chest pain, EKG non-ischemic Cardiac monitoring - Time Spent with Patient Total time spent is greater than 50% in coordination of care (as documented) at patient's floor/unit and/or counseling patient: Plan of Care Discussed with: family Internal Medicine: Result - Labs CBC & Chem 7: 02/03/19 01:20 02/03/19 01:20 Labs: Short CBC 02/02/19 02/03/19 Range/Units 18:31 01:20 WBC 10.1 8.7 (4.3-11.1) K/mcL Hgb 10.8 L 10.7 L (12.9-16.9) g/dL Hct 34.7 L 35.0 L (37.5-50.1) % Plt Count 379 337 (140-400) K/mcL Neutrophils # 8.8 (1.6-8.9) K/mcL BMP 02/02/19 02/03/19 18:31 01:20 Sodium 137 138 Potassium 3.4 L 3.4 L Chloride 96 L 100 Carbon Dioxide 26 28 BUN 12 12 Creatinine 0.86 0.80 Glucose 186 H 175 H Calcium 8.5 L 8.1 L Cardiac Enzymes 02/02/19 02/03/19 02/03/19 Range/Units 18:31 01:20 07:18 Troponin I 0.03 0.04 H* 0.03 (< 0.04) ng/mL Liver Function 02/02/19 Range/Units 18:31 Total Bilirubin 0.9 (0.3-1.0) mg/dL AST 22 (13-39) Units/L ALT 7 (7-52) Units/L Alkaline Phosphatase 124 H (34-104) Units/L Albumin 2.5 L (3.5-5.7) g/dL Urine 02/02/19 Range/Units 19:17 Urine Color Dark Yellow (Yellow) Urine Clarity Clear (Clear) Urine pH 6.0 (5.0-8.0) pH Units Ur Specific [place] 1.021 (1.010-1.025) Urine Protein 30 H (Neg-Trace) mg/dL Urine Glucose (UA) Normal (Normal) mg/dL - ABG Interpretation ABG results: PT/INR, D-dimer PT 15.4 Seconds (9.4-12.1) H 02/02/19 18:31 - Impressions Impressions Abdomen/Pelvis CT 02/02/19 00:00 IMPRESSION: 1. Large right and small to moderate left pleural effusions with associated atelectasis. 2. Large ascites. 3. Findings of cirrhosis. 4. Thickened ascending colon wall likely edema related to the cirrhosis and ascites. D/ / Iron Coreas MD / Iron Coreas MD Interpreting Provider: Iron Coreas MD Chest CT 02/02/19 00:00 IMPRESSION: 1. Large right and small to moderate left pleural effusions with associated atelectasis. 2. Large ascites. 3. Findings of cirrhosis. 4. Thickened ascending colon wall likely edema related to the cirrhosis and ascites. D/ / Iron Coreas MD / Iron Coreas MD Interpreting Provider: Iron Coreas MD Chest X-Ray 02/02/19 17:51 IMPRESSION: Moderate right pleural effusion. D/ / Iron Coreas MD / Iron Coreas MD Interpreting Provider: Iron Coreas MD Head CT 02/02/19 17:51 IMPRESSION: No acute intracranial abnormality. D/ / Fabricio Reinoso MD / Fabricio Reinoso MD Interpreting Provider: Fabricio Reinoso MD Cervical Spine CT 02/02/19 18:25 IMPRESSION: 1. No acute cervical spine abnormality 2. Bilateral pleural effusions right greater than left. D/ / Fabricio Reinoso MD / Fabricio Reinoso MD Interpreting Provider: Fabricio Reinoso MD Pelvis X-Ray 02/02/19 18:25 IMPRESSION: No acute fracture. D/ / Iron Coreas MD / Iron Coreas MD Interpreting Provider: Iron Coreas MD Paracentesis Ultrasound 02/03/19 08:45 IMPRESSION: Successful ultrasound guided paracentesis. D/ / Austin Burnett MD / Austin Burnett MD Interpreting Provider: Austin Burnett MD Consult Discharge Plan - Plan [facility]errals: [facility] [Primary Care Provider] - (2) Rhabdomyolysis Qualifiers: Rhabdomyolysis type: non-traumatic Qualified Code(s): M62.82 - Rhabdomyolysis (4) Ascites Qualifiers: Ascites type: other type Qualified Code(s): R18.8 - Other ascites (6) Falls Qualifiers: Encounter type: initial encounter Qualified Code(s): W19.XXXA - Unspecified fall, initial encounter
[2019-02-03] MEDS ORDERED: Albumin 25% 25gram/100mL 25 GM/100 ML IV.SOLN IVPB ONE (14:00)
--- NOTE | 2019-02-03 17:47 | Electrocardiograph Report ---
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
[2019-02-04] MEDS: 0.9 % Sodium Chloride 1,000 ML IVC SCH ×2 (01:12→08:27)
[2019-02-04] MEDS: Insulin LISPRO 300 UNITS/3 ML VIAL SQ SCH ×4 (08:31→20:54)
--- NOTE | 2019-02-04 09:37 | Internal Med Progress Note ---
Hospitalist Progress Note - Encounter Date of Encounter: 02/04/19 Time of Encounter: 09:35 - Subjective Interval History: Pt seen and examined in the room. He seems alert and oriented. He has no abdominal pain, N/V, or diarrhea. Overnight he has no fever, chills, or night sweats. - Exam Vitals: Temp Pulse Resp BP Pulse Ox 97.8 F 102 16 106/65 90 02/04/19 07:58 02/04/19 07:58 02/04/19 07:58 02/04/19 07:58 02/04/19 07:58 Exam: Gen: Laying flat in bed, hard of hearing but not in distress. HEENT: dry oral mucosa, anicteric Chest: CTAB, no added sounds Heart: S1, S2 only, no added sounds, systolic murmur Abdomen: Flat, clean wound dressing at para site, no palpably enlarged organs Extremities: Trace ankle edema bilaterally Neuro: Aleert, awake, oriented to place and person, moved all extremities equally. Psych: appropriate mood and affect - Assessment and Plan (1) Ascites Current Visit: Yes Status: Acute Assessment and Plan: 02/03 Patient's abdomen distended, imaging reveals ascites. He does have a history of cirrhosis and follicular lymphoma s/p paracentensis by IR with removal of 7.2L of straw colored fluid-did not send for pathology. Will give 25g of albumin for large volume paracentesis. Continue to monitor. Not on diuretics, consider starting diuretics after IVF hydration for elevated CK has been discontinued. 02/04 Low level of CK and renal function normal. Due to ascites, will dc IVF. 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 Will start Aldactone. PT/OT recommended ECF. F/u with oncology and PCP upon dc. (2) Mesenteric mass Current Visit: Yes Status: Chronic Assessment and Plan: Biopsy proven low grade follicular lympoma Last seen by [facility] in September of this year. Management per oncology (3) Rhabdomyolysis Current Visit: Yes Status: Acute Assessment and Plan: low level of CK Patient's renal function is WNL (4) Elevated lactic acid level Current Visit: Yes Status: Resolved Assessment and Plan: Lactic acid level was 4.7 in the emergency room. Patient received 2 L of IV fluids. Repeat lactic acid is 1.4, continue to monitor. (5) Falls Current Visit: Yes Status: Acute (6) Elevated troponin Current Visit: Yes Status: Resolved Assessment and Plan: Trop, 0.03, 0.04, and 0.03, No EKG changes, no chest pain. Cardiac monitoring. (7) DVT prophylaxis Current Visit: Yes Status: Acute Assessment and Plan: SCDs secondary to history of GI bleed - Time Spent with Patient Total time spent is greater than 50% in coordination of care (as documented) at patient's floor/unit and/or counseling patient: Greater than 35 minutes Plan of Care Discussed with: patient Internal Medicine: Result - Labs CBC & Chem 7: 02/03/19 01:20 02/03/19 01:20 - ABG Interpretation ABG results: PT/INR, D-dimer PT 15.4 Seconds (9.4-12.1) H 02/02/19 18:31 - Impressions Impressions Paracentesis Ultrasound 02/03/19 08:45 IMPRESSION: Successful ultrasound guided paracentesis. D/ / Austin Burnett MD / Austin Burnett MD Interpreting Provider: Austin Burnett MD Consult Discharge Plan - Plan [facility]errals: [facility] [Primary Care Provider] - (1) Ascites Qualifiers: Ascites type: other type Qualified Code(s): R18.8 - Other ascites (3) Rhabdomyolysis Qualifiers: Rhabdomyolysis type: non-traumatic Qualified Code(s): M62.82 - Rhabdomyolysis (5) Falls Qualifiers: Encounter type: initial encounter Qualified Code(s): W19.XXXA - Unspecified fall, initial encounter
[2019-02-05 02:50] LABS: Basophils % 0.5 %; Eosinophils # 0.1 K/mcL (0.0-0.6); Eosinophils % 1.5 %; Hematocrit 31.3 % (37.5-50.1); Hemoglobin 9.5 g/dL (12.9-16.9); Immature Granulocytes % 0.4 % (0-4); Lymphocytes # 0.9 K/mcL (0.6-4.6); Lymphocytes % 12.6 %; Mean Corpuscular HGB Conc 30.4 g/dL (31.6-35.5); Mean Corpuscular Hemoglobin 25.4 pg (28.0-33.3); Mean Corpuscular Volume 83.7 fL (83.0-100.0); Mean Platelet Volume 9.5 fL (9.4-12.4); Monocytes # 0.7 K/mcL (0.0-1.3); Monocytes % 9.4 %; Neutrophils # 5.6 K/mcL (1.6-8.9); Platelet Count 321 K/mcL (140-400); Red Blood Count 3.74 M/mcL (4.19-5.50); Red Cell Distribution Width 18.6 % (11.5-14.5); Segmented Neutrophils % 75.6 %; White Blood Count 7.5 K/mcL (4.3-11.1)
[2019-02-05 03:08] LABS: BUN/Creatinine Ratio 18 (6-26); Blood Urea Nitrogen 14 mg/dL (8-23); Calcium 7.9 mg/dL (8.6-10.3); Carbon Dioxide 26 mEq/L (23-29); Chloride 103 mEq/L (98-107); Glucose 164 mg/dL (70-105); Osmolality,Calculated 282 (280-300); Potassium 4.1 mEq/L (3.5-5.1); Sodium 134 mEq/L (136-145); eGFR For African Americans > 60 (> 60); eGFR For Non-African Americans > 60 (> 60)
[2019-02-05] MEDS: Insulin LISPRO 300 UNITS/3 ML VIAL SQ SCH ×4 (08:22→20:06)
--- NOTE | 2019-02-05 11:40 | Discharge Summary ---
- NOTES TO OUTPATIENT PROVIDER Notes to Outpatient Provider: Presented after falls PT/OT recommending ECF swing bed. Did have ascites with removal of 7.2 L of fluid initiated on Aldactone and lasix monitor lab work as outpatient Orders not resulted at time of discharge: Pending orders 02/05/19 11:27 CK [Creatine Kinase] Routine Date of Encounter: 02/07/19 Time of Encounter: 12:25 - Discharge Diagnosis (1) Mesenteric mass Priority: Secondary Status: Chronic (2) Rhabdomyolysis Priority: Secondary Status: Acute Qualifiers: Rhabdomyolysis type: non-traumatic Qualified Code(s): M62.82 - Rhabdomyolysis (3) Elevated lactic acid level Priority: Primary Status: Resolved (4) Ascites Priority: Secondary Status: Acute Qualifiers: Ascites type: other type Qualified Code(s): R18.8 - Other ascites (5) Falls Priority: Secondary Status: Acute Qualifiers: Encounter type: initial encounter Qualified Code(s): W19.XXXA - Unspecified fall, initial encounter (6) Elevated troponin Priority: Secondary Status: Resolved Hospital course: Mr. Page is a 88 year old male [place] history of esophageal varices GI bleed anemia diabetes hypertension cirrhosis. Patient presented to [facility] ED after being found the floor by his son. Patient did not recall the episode and he was on the floor for unknown amount time. On presentation he was found to have CK of 475 lactate was 4.[address] with no acute intracranial abnor mality urinalysis with no infection cervical C-spine with no acute abnormalities pelvis negative for fracture chest x-ray did show moderate right pleural effusion. Given IV fluid and CK did improve Chest abdomen and pelvis CT large right and small to moderate left pleural effusion large ascites . He underwent paracentesis on 02/03/19 and had approximately 7.28 L of fluid removed. Postprocedure he did have some orthostatic hypotension with blood pressures dropping down into the 70s standing. He was given albumin and blood pressure improved. Patient was initiated on low-dose diuretics. Nutritional services were consulted for dietary supplements. He was also seen by PT and OT recommending inpatient rehabilitation. Currently patient is hemodynamically stable at this time and he is ready for discharge. - Time Spent with Patient Total time spent providing and/or coordinating discharge services: - Discharge Medications Prescriptions: New Spironolactone [Aldactone] 12.5 mg PO DAILY tablet Furosemide [Lasix] 20 mg PO DAILY tablet Continued Insulin Glargine [Lantus] 50 unit SQ DAILY Omeprazole [PriLOSEC] 20 mg PO DAILY Empagliflozin [Jardiance] 25 mg PO DAILY No Action Ferrous Sulfate 325 mg PO BID 30 Days #60 tablet. FLUoxetine HCl [Fluoxetine HCl] 10 mg PO DAILY Propranolol [Inderal] 20 mg PO DAILY Rosuvastatin [Crestor] 40 mg PO HS Home Medications: Insulin Glargine [Lantus] 50 unit SQ DAILY 04/17/17 [History] Omeprazole [PriLOSEC] 20 mg PO DAILY 03/11/18 [History] Ferrous Sulfate 325 mg PO BID 30 Days #60 tablet. 10/09/18 [Rx] Empagliflozin [Jardiance] 25 mg PO DAILY 02/04/19 [History] FLUoxetine HCl [Fluoxetine HCl] 10 mg PO DAILY 02/04/19 [History] Propranolol [Inderal] 20 mg PO DAILY 02/04/19 [History] Rosuvastatin [Crestor] 40 mg PO HS 02/04/19 [History] Furosemide [Lasix] 20 mg PO DAILY tablet 02/07/19 [Rx] Spironolactone [Aldactone] 12.5 mg PO DAILY tablet 02/07/19 [Rx] Allergies/Adverse Reactions: Allergy/AdvReac Type Severity Reaction Status Date / Time metformin AdvReac Unknown Abdominal Verified 10/09/18 09:24 Pain tamsulosin AdvReac Unknown unknown Verified 10/09/18 09:24 Date of admission: 02/02/19 22:02 Primary care physician: PCP [place] Consults: 02/02/19 21:55 Consult to Occupational Therapy [CONS] Routine Comment: Evaluate, develop and implement POC Reason for Consult: Weakness, falls at home Does patient have active BEDREST order?: No Is patient medically & hemodynamically stable?: Yes Patient assessed for mobility or mobilized this visit?: No Consult to Physical Therapy [CONS] Routine Comment: Evaluate, develop and implement POC Reason for Consult: Weakness, falls at home Does patient have active BEDREST order?: No Is patient medically & hemodynamically stable?: Yes Patient assessed for mobility or mobilized this visit?: No 02/02/19 21:56 Consult to Home Health Rn [CONS] Routine Reason for SW Consult: Weakness, lives at home. Poor communicator, does not involve family with medical needs/problems 02/02/19 21:57 Consult to Home Health Rn [CONS] Routine Reason for SW Consult: lives home alone, recent fall. Discharge planning 02/02/19 22:37 Consult to Nutrition [CONS] Routine Comment: Consulting Provider: NUTRITION Reason for Dietary Consult: PO Supplementation Discharging clinician: Genesis Rodriguez Anticipated date of discharge: 02/07/19 - Constitutional Vitals: Temp Pulse Resp BP Pulse Ox 97.9 F 98 16 103/56 94 02/05/19 07:44 02/05/19 07:44 02/05/19 07:44 02/05/19 07:44 02/05/19 07:44 General appearance: Present: cooperative, A&O X 2, pleasant, no acute distress Exam: Gen: Laying flat in bed, hard of hearing but not in distress. HEENT: dry oral mucosa, anicteric Chest: CTAB, no added sounds Heart: S1, S2 only, no added sounds, systolic murmur Abdomen: Distended soft, no palpably enlarged organs Extremities: Trace ankle edema bilaterally Neuro: Aleert, awake, oriented to place and person, moved all extremities equally. Psych: appropriate mood and affect - Patient Status Disposition: Transfer SNF Condition: Good - Discharge Instructions [facility]: [facility] Care Provider[facility] - 02/14/19 10:30 am - Diet and Activity Activity: increase activity as tolerated Diet: advance to your usual diet
[2019-02-05 11:45] LABS: Creatine Kinase 64 Units/L (30-223)
--- NOTE | 2019-02-05 13:20 | Internal Med Progress Note ---
Hospitalist Progress Note - Encounter Date of Encounter: 02/05/19 Time of Encounter: 11:00 - Subjective Interval History: Patient was seen and examined at bedside. Patient is extremely hard of hearing- patient did have recent paracentesis and had a large amount of fluid removed. We will obtain orthostatic vital signs advised patient he may not be discharged if blood pressure continues to be low. Patient verbalized understanding - Exam Vitals: Temp Pulse Resp BP Pulse Ox 98.2 F 98 16 105/59 92 02/05/19 11:28 02/05/19 11:58 02/05/19 11:28 02/05/19 11:58 02/05/19 11:28 Exam: Gen: Laying flat in bed, hard of hearing but not in distress. HEENT: dry oral mucosa, anicteric Chest: CTAB, no added sounds Heart: S1, S2 only, no added sounds, systolic murmur Abdomen: Distended soft, no palpably enlarged organs Extremities: Trace ankle edema bilaterally Neuro: Aleert, awake, oriented to place and person, moved all extremities equally. Psych: appropriate mood and affect - Assessment and Plan (1) Mesenteric mass Current Visit: Yes Status: Chronic Assessment and Plan: Biopsy proven low grade follicular lympoma Last seen by [facility] in September of this year. Management per [id number] as outpatient (2) Rhabdomyolysis Current Visit: Yes Status: Acute Assessment and Plan: low level of CK-currently 64-resolved Patient's renal function is WNL (3) Elevated lactic acid level Current Visit: Yes Status: Resolved Assessment and Plan: Lactic acid level was 4.7 in the emergency room. Patient received 2 L of IV fluids. Repeat lactic acid is 1.4 (4) Ascites Current Visit: Yes Status: Acute Assessment and Plan: 02/03 Patient's abdomen distended, imaging reveals ascites. He does have a history of cirrhosis and follicular lymphoma s/p paracentensis by IR with removal of 7.2L of straw colored fluid-did not send for pathology. Will give 25g of albumin for large volume paracentesis. Continue to monitor. Not on diuretics, consider starting diuretics after IVF hydration for elevated CK has been discontinued. 02/04 Low level of CK and renal function normal. Due to ascites, will dc IVF. 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 Will start Aldactone. PT/OT recommended ECF. F/u with oncology and PCP upon dc. 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 We will initiate on Aldactone however at this time since blood pressure is low PT/OT recommending ECF swing bed Follow-up with oncology as outpatient Follow-up with [facility] [place] (5) DVT prophylaxis Current Visit: Yes Status: Acute Assessment and Plan: SCDs secondary to history of GI bleed (6) Falls Current Visit: Yes Status: Acute Assessment and Plan: Patient does not recall the episode that brought him to the emergency room. He is unsure how long he was on the ground. He has had multiple falls at home previously is never lost consciousness. Patient does not eat the food that he is given by his family. He states that he just has no appetite and does not want to eat. PT OT recommending ECF swing bed Fall precautions Nutrition consult noted-continue ensure Currently experiencing orthostatic hypotension (7) Elevated troponin Current Visit: Yes Status: Resolved Assessment and Plan: Trop, 0.03, 0.04, and 0.03, No EKG changes, no chest pain. Cardiac monitoring. (8) Orthostatic hypotension Current Visit: Yes Status: Acute Assessment and Plan: Noted systolic pressure was low checked orthostatics systolic dropped down to 70s we will hold blood pressure medication for now-most likely secondary to large volume removal from paracentesis we will monitor - Time Spent with Patient Total time spent is greater than 50% in coordination of care (as documented) at patient's floor/unit and/or counseling patient: Internal Medicine: Result - Labs CBC & Chem 7: 02/05/19 02:31 02/05/19 02:31 Labs: Short CBC 02/05/19 Range/Units 02:31 WBC 7.5 (4.3-11.1) K/mcL Hgb 9.5 L (12.9-16.9) g/dL Hct 31.3 L (37.5-50.1) % Plt Count 321 (140-400) K/mcL Neutrophils # 5.6 (1.6-8.9) K/mcL BMP 02/05/19 02:31 Sodium 134 L Potassium 4.1 Chloride 103 Carbon Dioxide 26 BUN 14 Creatinine 0.78 Glucose 164 H Calcium 7.9 L - ABG Interpretation ABG results: PT/INR, D-dimer PT 15.4 Seconds (9.4-12.1) H 02/02/19 18:31 Consult Discharge Plan - Plan [facility]errals: [facility] [Primary Care Provider] - (2) Rhabdomyolysis Qualifiers: Rhabdomyolysis type: non-traumatic Qualified Code(s): M62.82 - Rhabdomyolysis (4) Ascites Qualifiers: Ascites type: other type Qualified Code(s): R18.8 - Other ascites (6) Falls Qualifiers: Encounter type: initial encounter Qualified Code(s): W19.XXXA - Unspecified fall, initial encounter
[2019-02-06 02:26] LABS: BUN/Creatinine Ratio 18 (6-26); Blood Urea Nitrogen 14 mg/dL (8-23); Calcium 8.1 mg/dL (8.6-10.3); Carbon Dioxide 27 mEq/L (23-29); Chloride 101 mEq/L (98-107); Glucose 148 mg/dL (70-105); Osmolality,Calculated 279 (280-300); Potassium 4.2 mEq/L (3.5-5.1); Sodium 133 mEq/L (136-145); eGFR For African Americans > 60 (> 60); eGFR For Non-African Americans > 60 (> 60)
[2019-02-06] MEDS: Insulin LISPRO 300 UNITS/3 ML VIAL SQ SCH ×4 (07:42→20:53)
[2019-02-06] MEDS: Spironolactone 25 MG TABLET PO SCH (07:43)
--- NOTE | 2019-02-06 14:54 | Internal Med Progress Note ---
Hospitalist Progress Note - Encounter Date of Encounter: 02/06/19 Time of Encounter: 11:00 - Subjective Interval History: Patient was seen and examined at bedside patient is extremely hard of hearing - discussed to plan with the patient and son who is at bedside- Patient did paracentesis- and had 7238ml of fluid removed-since this procedure patient has been experiencing hypotension-orthostatic hypotension-we will check albumin- may consider midorine discussed son and father who are at bedside- verbalized understanding - Exam Vitals: Temp Pulse Resp BP Pulse Ox 97.7 F 95 16 96/56 91 02/06/19 12:18 02/06/19 12:18 02/06/19 12:18 02/06/19 12:18 02/06/19 12:18 Exam: Gen: Laying flat in bed, hard of hearing but not in distress. HEENT: dry oral mucosa, anicteric Chest: CTAB, no added sounds Heart: S1, S2 only, no added sounds, systolic murmur Abdomen: Distended soft, no palpably enlarged organs Extremities: Trace ankle edema bilaterally Neuro: Aleert, awake, oriented to place and person, moved all extremities equally. Psych: appropriate mood and affect - Assessment and Plan (1) Mesenteric mass Current Visit: Yes Status: Chronic Assessment and Plan: Biopsy proven low grade follicular lympoma Last seen by [facility] in September of this year. Management per [id number] as outpatient (2) Rhabdomyolysis Current Visit: Yes Status: Acute Assessment and Plan: low level of CK-currently 64-resolved Patient's renal function is WNL (3) Elevated lactic acid level Current Visit: Yes Status: Resolved Assessment and Plan: Lactic acid level was 4.7 in the emergency room. Patient received 2 L of IV fluids. Repeat lactic acid is 1.4 (4) Ascites Current Visit: Yes Status: Acute Assessment and Plan: 02/03 Patient's abdomen distended, imaging reveals ascites. He does have a history of cirrhosis and follicular lymphoma s/p paracentensis by IR with removal of 7.2L of straw colored fluid-did not send for pathology. Will give 25g of albumin for large volume paracentesis. Continue to monitor. Not on diuretics, consider starting diuretics after IVF hydration for elevated CK has been discontinued. 02/04 Low level of CK and renal function normal. Due to ascites, will dc IVF. 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 Will start Aldactone. PT/OT recommended ECF. F/u with oncology and PCP upon dc. 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 We will initiate on Aldactone however at this time since blood pressure is low PT/OT recommending ECF swing bed Follow-up with oncology as outpatient Follow-up with primary at the [place] 02/06 Hx of cirrhosis denies any alcohol abuse, unclear Cirrhosis is caused by Folli cular Lymphoma. We will initiate on Aldactone however at this time since blood pressure is low will stop antihypertensive PT/OT recommending ECF swing bed Follow-up with oncology as outpatient Follow-up with primary at the [place] (5) DVT prophylaxis Current Visit: Yes Status: Acute Assessment and Plan: SCDs secondary to history of GI bleed (6) Falls Current Visit: Yes Status: Acute Assessment and Plan: Patient does not recall the episode that brought him to the emergency room. He is unsure how long he was on the ground. He has had multiple falls at home previously is never lost consciousness. Patient does not eat the food that he is given by his family. He states that he just has no appetite and does not want to eat. PT OT recommending ECF swing bed Fall precautions Nutrition consult noted-continue ensure Currently experiencing orthostatic hypotension (7) Elevated troponin Current Visit: Yes Status: Resolved Assessment and Plan: Trop, 0.03, 0.04, and 0.03, No EKG changes, no chest pain. Cardiac monitoring. (8) Orthostatic hypotension Current Visit: Yes Status: Acute Assessment and Plan: Noted systolic pressure was low checked orthostatics systolic dropped down to 70s we will hold blood pressure medication for now-most likely secondary to large volume removal from paracentesis we will monitor we will check albumin consider midodrine - Time Spent with Patient Total time spent is greater than 50% in coordination of care (as documented) at patient's floor/unit and/or counseling patient: Internal Medicine: Result - Labs CBC & Chem 7: 02/05/19 02:31 02/06/19 01:35 Labs: BMP 02/06/19 01:35 Sodium 133 L Potassium 4.2 Chloride 101 Carbon Dioxide 27 BUN 14 Creatinine 0.77 Glucose 148 H Calcium 8.1 L Liver Function 02/06/19 Range/Units 13:15 Albumin 2.3 L (3.5-5.7) g/dL - ABG Interpretation ABG results: PT/INR, D-dimer PT 15.4 Seconds (9.4-12.1) H 02/02/19 18:31 Consult Discharge Plan - Plan [facility]errals: [facility] [Primary Care Provider] - (2) Rhabdomyolysis Qualifiers: Rhabdomyolysis type: non-traumatic Qualified Code(s): M62.82 - Rhabdomyolysis (4) Ascites Qualifiers: Ascites type: other type Qualified Code(s): R18.8 - Other ascites (6) Falls Qualifiers: Encounter type: initial encounter Qualified Code(s): W19.XXXA - Unspecified fall, initial encounter
[2019-02-06] MEDS: Albumin 25% 25gram/100mL 25 GM/100 ML IV.SOLN IVPB SCH ×2 (15:43→23:53)
[2019-02-07] MEDS: Spironolactone 25 MG TABLET PO SCH (07:47)
[2019-02-07] MEDS: Insulin LISPRO 300 UNITS/3 ML VIAL SQ SCH ×2 (07:48→11:33)
[2019-02-07] MEDS ORDERED: Furosemide 20 MG TABLET PO SCH (09:00)
[2019-02-07 11:19] LABS: Basophils % 0.4 %; Eosinophils # 0.1 K/mcL (0.0-0.6); Eosinophils % 1.9 %; Hematocrit 32.2 % (37.5-50.1); Hemoglobin 9.8 g/dL (12.9-16.9); Immature Granulocytes % 0.1 % (0-4); Lymphocytes # 0.8 K/mcL (0.6-4.6); Lymphocytes % 11.1 %; Mean Corpuscular HGB Conc 30.4 g/dL (31.6-35.5); Mean Corpuscular Hemoglobin 25.5 pg (28.0-33.3); Mean Corpuscular Volume 83.9 fL (83.0-100.0); Mean Platelet Volume 9.3 fL (9.4-12.4); Monocytes # 0.9 K/mcL (0.0-1.3); Neutrophils # 5.1 K/mcL (1.6-8.9); Platelet Count 350 K/mcL (140-400); Red Blood Count 3.84 M/mcL (4.19-5.50); Red Cell Distribution Width 18.7 % (11.5-14.5); Segmented Neutrophils % 73.5 %; White Blood Count 6.9 K/mcL (4.3-11.1)
[2019-02-07 11:39] LABS: BUN/Creatinine Ratio 15 (6-26); Blood Urea Nitrogen 12 mg/dL (8-23); Calcium 8.8 mg/dL (8.6-10.3); Carbon Dioxide 31 mEq/L (23-29); Chloride 97 mEq/L (98-107); Glucose 216 mg/dL (70-105); Osmolality,Calculated 286 (280-300); Potassium 3.8 mEq/L (3.5-5.1); Sodium 135 mEq/L (136-145); eGFR For African Americans > 60 (> 60); eGFR For Non-African Americans > 60 (> 60)
[2019-02-07 11:42] VITALS: BP 107/62
--- NOTE | 2019-02-07 13:36 | Physician Discharge Referral ---
ExtendedCare Referral Info Transfer To: [facility] Provider in Charge: Phillip Rodriguez Provider in Charge after Transfer: PCP Institutional Level of Care: Skilled - Diagnosis (1) Mesenteric mass Status: Chronic (2) Rhabdomyolysis Priority: Primary Status: Acute (3) Elevated lactic acid level Priority: Secondary Status: Resolved (4) Ascites Priority: Secondary Status: Acute (5) Falls Priority: Primary Status: Acute (6) Elevated troponin Priority: Secondary Status: Resolved - Transfer Medications Home Medications: Insulin Glargine [Lantus] 50 unit SQ DAILY 04/17/17 [History] Omeprazole [PriLOSEC] 20 mg PO DAILY 03/11/18 [History] Ferrous Sulfate 325 mg PO BID 30 Days #60 tablet. 10/09/18 [Rx] Empagliflozin [Jardiance] 25 mg PO DAILY 02/04/19 [History] FLUoxetine HCl [Fluoxetine HCl] 10 mg PO DAILY 02/04/19 [History] Propranolol [Inderal] 20 mg PO DAILY 02/04/19 [History] Rosuvastatin [Crestor] 40 mg PO HS 02/04/19 [History] Furosemide [Lasix] 20 mg PO DAILY tablet 02/07/19 [Rx] Spironolactone [Aldactone] 12.5 mg PO DAILY tablet 02/07/19 [Rx] Allergies/Adverse Reactions: Allergy/AdvReac Type Severity Reaction Status Date / Time metformin AdvReac Unknown Abdominal Verified 10/09/18 09:24 Pain tamsulosin AdvReac Unknown unknown Verified 10/09/18 09:24 - Respiratory Orders Smoking Cessation: Smoking cessation has been advised. For more information, call the [place] Tobacco Quit Line at 8-039-TOQRNOW. - Advance Directives Code Status: DNR-Arrest/Don't Intubate - Mobility Orders Ambulate - Rehabiliation Orders Rehab Potential: Good Rehab Orders: Evaluation for Physical Therapy, Evaluation for Occupational Therapy - Treatments Skin tear care topically daily PRN per policy - Diet Orders Cardiac House Supplement per Dietary: Ensure, Magic Cup CERTIFICATION: I certify that the transfer of the above named patient to an Extended Care Facility is necessary for the continuing treatment of the diagnosis listed. The above information is true and accurate reflection of patient's current condition. Confidential - Redisclosure prohibited without a patient's written consent.
== END 2019-02-07 15:29 | DRG 558 ==
LOC: 3BNU 17:42 → EMEROOARM 17:42 → 3BNU 21:06 → SUATTDRO 22:02
PROVIDERS: ADMIT Internal Medicine; ATTEND Internal Medicine